=== PATIENT | male | born 1960 | race African-American/Black ===

== ENCOUNTER 2018-09-04 16:18 | Emergency (ER) | payer OTHER ==
[2018-09-04 16:50] LABS: ABS Basophils 0.1 10^3/ul (0-0.2); ABS Eosinophils 0.1 10^3/ul (0-0.6); ABS Lymphocytes 2.5 10^3/ul (1.0-4.8); ABS Monocytes 0.5 10^3/ul (0-0.8); ABS Neutrophils 4.3 10^3/ul (1.5-7.7); Eosinophil % 1.4 %; Hematocrit 49 % (42-52); Hemoglobin 16.1 g/dL (14.0-18.0); Lymphocyte % 33.2 %; Mean Corpuscular HGB Conc 33 g/dL (31-36); Mean Corpuscular Hemoglobin 27 pg (27-31); Mean Corpuscular Volume 80 fL (80-94); Mean Platelet Volume 9.2 fL (7.4-10.4); Nucleated Red Blood Cells % 0.2; Platelet Count 132 10^3/uL (150-450); Red Blood Count 6.07 10^6 /uL (4.18-5.48); Red Cell Distribution Width 13 % (10-15); White Blood Count 7.5 10^3/uL (3.5-10.8)
[2018-09-04 17:09] LABS: Albumin 4.6 g/dL (3.2-5.2); Albumin/Globulin Ratio 1.3 (1-3); C Reactive Protein 13.08 mg/L (<8.01); Calcium 10.1 mg/dL (8.6-10.3); EGFR African American 47.9 (>60); EGFR Non-African American 39.6 (>60); Globulin 3.5 g/dL (2-4); Potassium 3.4 mmol/L (3.5-5.0); Total Bilirubin 0.7 mg/dL (0.2-1.0); Total Protein 8.1 g/dL (6.4-8.9)
[2018-09-04] MEDS ORDERED: NS 0.9% 1000 ML** 2,000 ML IV ONE (17:53)
[2018-09-04] MEDS ORDERED: metFORMIN* 500 MG TAB PO ONE (20:46)
--- NOTE | 2018-09-04 20:50 | ED ---
Complex/Multi-Sys Presentation - HPI Summary HPI Summary: [facility] complains of elevated glucose level of 550 this morning. Patient has no prior history of diabetes. Patient was given 8 units of insulin 11:30 AM with no change in his glucose level. Patient states he has been urinating frequently over the past 4 days and has been very thirsty. Denies any other symptoms pain or injury. Medical history is BPH, HTN. nOn smoker. - History Of Current Complaint Chief Complaint: EDDiabeticProb Time Seen by Provider: 09/04/18 17:51 Hx Obtained From: Patient Onset/Duration: Gradual Onset, Lasting Days Timing: Constant Severity Currently: None Location: Negative - Allergies/Home Medications Allergies/Adverse Reactions: Allergies Allergy/AdvReac Type Severity Reaction Status Date / Time No Known Allergies Allergy Verified 09/04/18 16:24 PMH/Surg Hx/FS Hx/Imm Hx Endocrine/Hematology History: Denies: Hx Anticoagulant Therapy Cardiovascular History: Denies: Hx Pacemaker/ICD History: Denies: Hx Dialysis Sensory History: Denies: Hx Eye Injury Opthamlomology History: Denies: Hx Legally Blind EENT History: Denies: Hx Deafness Neurological History: Denies: Hx Dementia Infectious Disease History: No Infectious Disease History: Denies: Traveled Outside the [place] in Last 30 Days - Family History Known Family History: Positive: None - Social History Alcohol Use: None Substance Use Type: Reports: None Smoking Status (MU): Never Smoked Tobacco Review of Systems Constitutional: Negative Eyes: Negative ENT: Negative Cardiovascular: Negative Respiratory: Negative Gastrointestinal: Negative Genitourinary: Negative Musculoskeletal: Negative Skin: Negative Neurological: Negative Psychological: Normal All Other Systems Reviewed And Are Negative: Yes Physical Exam Triage Information Reviewed: Yes Vital Signs On Initial Exam: Initial Vitals Temp Pulse Resp BP Pulse Ox 98.8 F 95 18 159/98 97 09/04/18 16:20 09/04/18 16:20 09/04/18 16:20 09/04/18 16:20 09/04/18 16:20 Vital Signs Reviewed: Yes Appearance: Positive: Well-Appearing Skin: Positive: Warm Head/Face: Positive: Normal Head/Face Inspection Eyes: Positive: Normal Neck: Positive: Supple Respiratory/Lung Sounds: Positive: Clear to Auscultation Cardiovascular: Positive: Normal Abdomen Description: Positive: Nontender Musculoskeletal: Positive: Normal Neurological: Positive: Normal Psychiatric: Positive: Normal AVPU Assessment: Alert - [place] Coma Scale Best Eye Response: 4 - Spontaneous Best Motor Response: 6 - Obeys Commands Best Verbal Response: 5 - Oriented Coma Scale Total: 15 Diagnostics - Vital Signs Vital Signs Temp Pulse Resp BP Pulse Ox 09/04/18 16:20 98.8 F 95 18 159/98 97 - Laboratory Lab Results: Lab Results 09/04/18 09/04/18 09/04/18 Range/Units 16:31 16:44 16:44 WBC 7.5 (3.5-10.8) 10^3/uL RBC 6.07 H (4.18-5.48) 10^6 /uL Hgb 16.1 (14.0-18.0) g/dL Hct 49 (42-52) % MCV 80 (80-94) fL MCH 27 (27-31) pg MCHC 33 (31-36) g/dL RDW 13 (10-15) % Plt Count 132 L (150-450) 10^3/uL MPV 9.2 (7.4-10.4) fL Neut % (Auto) 57.6 % Lymph % (Auto) 33.2 % [place] % (Auto) 7.1 % Eos % (Auto) 1.4 % Baso % (Auto) 0.7 % Absolute Neuts (auto) 4.3 (1.5-7.7) 10^3/ul Absolute Lymphs (auto) 2.5 (1.0-4.8) 10^3/ul Absolute Monos (auto) 0.5 (0-0.8) 10^3/ul Absolute Eos (auto) 0.1 (0-0.6) 10^3/ul Absolute Basos (auto) 0.1 (0-0.2) 10^3/ul Absolute Nucleated RBC 0.0 10^3/ul Nucleated RBC % 0.2 VBG pH (7.32-7.43) VBG pCO2 (41-51) mmHg VBG pO2 (35-45) mmHg VBG HCO3 (24-28) mmol/L VBG O2 Saturation (70-80) % VBG Base Excess (0.0-4.0) mmol/L Sodium 134 L (135-145) mmol/L Potassium 3.4 L (3.5-5.0) mmol/L Chloride 95 L (101-111) mmol/L Carbon Dioxide 29 (22-32) mmol/L Anion Gap 10 (2-11) mmol/L BUN 23 (6-24) mg/dL Creatinine 1.77 H (0.67-1.17) mg/dL Est GFR ( Amer) 47.9 (>60) Est GFR (Non-Af Amer) 39.6 (>60) BUN/Creatinine Ratio 13.0 (8-20) Glucose 458 H (70-100) mg/dL POC Glucose (mg/dL) 434 H* (70-100) mg/dL Lactic Acid (0.5-2.0) mmol/L Calcium 10.1 (8.6-10.3) mg/dL Total Bilirubin 0.70 (0.2-1.0) mg/dL AST 32 (13-39) U/L ALT 36 (7-52) U/L Alkaline Phosphatase 116 H (34-104) U/L C-Reactive Protein 13.08 H (<8.01) mg/L Total Protein 8.1 (6.4-8.9) g/dL Albumin 4.6 (3.2-5.2) g/dL Globulin 3.5 (2-4) g/dL Albumin/Globulin Ratio 1.3 (1-3) 09/04/18 09/04/18 09/04/18 Range/Units 16:44 16:44 19:40 WBC (3.5-10.8) 10^3/uL RBC (4.18-5.48) 10^6 /uL Hgb (14.0-18.0) g/dL Hct (42-52) % MCV (80-94) fL MCH (27-31) pg MCHC (31-36) g/dL RDW (10-15) % Plt Count (150-450) 10^3/uL MPV (7.4-10.4) fL Neut % (Auto) % Lymph % (Auto) % [place] % (Auto) % Eos % (Auto) % Baso % (Auto) % Absolute Neuts (auto) (1.5-7.7) 10^3/ul Absolute Lymphs (auto) (1.0-4.8) 10^3/ul Absolute Monos (auto) (0-0.8) 10^3/ul Absolute Eos (auto) (0-0.6) 10^3/ul Absolute Basos (auto) (0-0.2) 10^3/ul Absolute Nucleated RBC 10^3/ul Nucleated RBC % VBG pH 7.46 H (7.32-7.43) VBG pCO2 44 (41-51) mmHg VBG pO2 30.0 L (35-45) mmHg VBG HCO3 29.0 H (24-28) mmol/L VBG O2 Saturation 59.0 L (70-80) % VBG Base Excess 6.6 H (0.0-4.0) mmol/L Sodium (135-145) mmol/L Potassium (3.5-5.0) mmol/L Chloride (101-111) mmol/L Carbon Dioxide (22-32) mmol/L Anion Gap (2-11) mmol/L BUN (6-24) mg/dL Creatinine (0.67-1.17) mg/dL Est GFR ( Amer) (>60) Est GFR (Non-Af Amer) (>60) BUN/Creatinine Ratio (8-20) Glucose (70-100) mg/dL POC Glucose (mg/dL) 304 H (70-100) mg/dL Lactic Acid 1.5 (0.5-2.0) mmol/L Calcium (8.6-10.3) mg/dL Total Bilirubin (0.2-1.0) mg/dL AST (13-39) U/L ALT (7-52) U/L Alkaline Phosphatase (34-104) U/L C-Reactive Protein (<8.01) mg/L Total Protein (6.4-8.9) g/dL Albumin (3.2-5.2) g/dL Globulin (2-4) g/dL Albumin/Globulin Ratio (1-3) Result Diagrams: 09/04/18 16:44 09/04/18 16:44 Lab Statement: Any lab studies that have been ordered have been reviewed, and results considered in the medical decision making process. Complex Multi-Symp Course/Dx Course Of Treatment: [facility] from [facility] complains of elevated glucose level of 550 this morning. Patient has no prior history of diabetes. Patient was given 8 units of insulin 11:30 AM with no change in his glucose level. Patient states he has been urinating frequently over the past 4 days and has been very thirsty. Denies any other symptoms pain or injury. Medical history is BPH, HTN. nOn smoker. Vital signs within normal limits. BTL 458. Creatinine 1.77. No prior levels to compare to. Labs otherwise within normal limits. Patient given 2 L normal saline. Glucose level on recheck 300. Diagnosed with new onset diabetes. Started on metformin 500 mg twice a day after discussing patient with attending Dr. Cuellar. - Diagnoses Provider Diagnoses: Hyperglycemia Discharge - Sign-Out/Discharge Documenting (check all that apply): Patient Departure Patient Received Moderate/Deep Sedation with Procedure: No - Discharge Plan Condition: Stable Disposition: HOME Prescriptions: Metformin HCl 500 mg PO BID 30 Days #60 tablet Patient Education Materials: Diabetic Hyperglycemia (ED) Referrals: Karie LAUGHLIN,Edgar Cervantes [Medical Doctor] - Additional Instructions: Follow-up with primary care for further evaluation of likely diabetes. Return to the ED for any new or worsening symptoms. - Billing Disposition and Condition Condition: STABLE Disposition: Home
[2018-09-04 21:23] VITALS: BP 183/107
== END 2018-09-04 21:21 | disposition home or self-care (01) ==
LOC: ED 16:18
DX: R73.9 Hyperglycemia, unspecified (principal); I10 Essential (primary) hypertension
CPT/HCPCS: 36415; 80053; 82803; 83605; 85025; 86140; 96360; 96361; 99282; A9270-GY